=== PATIENT | male | born 1980 | race Hispanic/Latino ===

== ENCOUNTER 2023-04-10 07:15 | Emergency (ER) | payer BC, OTHER ==
[~2023-04-10] VITALS: Ht 180.3 cm; Wt 108.0 kg
[2023-04-10 07:21] VITALS: BP 150/102; PULSE 73; RESP 18
[2023-04-10 08:16] LABS: BASOPHILS # (AUTO) 0.05 K/uL (0.00-0.20); BASOPHILS % (AUTO) 0.6 % (0.0-5.0); EOSINOPHILS # (AUTO) 0.45 K/uL (0.00-0.70); EOSINOPHILS % (AUTO) 5.5 % (0.0-8.0); HEMATOCRIT 44.3 % (42-54); IMMATURE GRANULOCYTE ABSOLUTE 0.03 K/uL (0-1); LYMPHOCYTES # (AUTO) 2.2 K/uL (1.0-4.8); LYMPHOCYTES % (AUTO) 26.6 % (21.0-51.0); MEAN CORPUSCULAR HEMOGLOBIN 29.1 pg (27.0-33.0); MEAN CORPUSCULAR HGB CONC 35.4 g/dL (32.0-36.0); MONOCYTES # (AUTO) 0.5 K/uL (0.1-1.0); MONOCYTES % (AUTO) 6.2 % (3.0-13.0); NEUTROPHILS % (AUTO) 60.7 % (40.0-77.0); PLATELET COUNT (AUTO) 210 K/uL (130-400); RED CELL DISTRIBUTION WIDTH 12.3 % (11.0-15.5); WHITE BLOOD COUNT (AUTO) 8.2 K/uL (4.8-10.8)
[2023-04-10 08:29] LABS: APPEARANCE,URINE CLOUDY (CLEAR); BILIRUBIN,URINE NEGATIVE (NEGATIVE); COLOR,URINE LIGHT-ORANGE (YELLOW); GLUCOSE, URINE (UA) NEGATIVE (NEGATIVE); KETONES,URINE NEGATIVE (NEGATIVE); LEUKOCYTE ESTERASE ,URINE NEGATIVE Leu/uL (NEGATIVE); NITRATE,URINE NEGATIVE (NEGATIVE); OCCULT BLOOD,URINE LARGE (NEGATIVE); PROTEIN,URINE 30 mg/dL (NEGATIVE); UROBILINOGEN,URINE 0.2 mg/dL (0.2-1.0)
[2023-04-10 08:31] LABS: ADD UA MICROSCOPIC YES
[2023-04-10 08:36] LABS: BACTERIA,URINE RARE /HPF (None Seen); BILIRUBIN,TOTAL 0.5 mg/dL (0.2-1.0); CREATININE 1.4 mg/dL (0.5-1.5); MUCUS,URINE RARE LPF (None Seen); POTASSIUM 3.9 mmol/L (3.5-5.1); RBC,URINE TNTC /HPF (0-1); TOTAL PROTEIN, SERUM 7.2 g/dL (6.0-8.3)
== END 2023-04-10 11:08 | disposition home or self-care (01) ==
LOC: EDH 07:15
DX: N28.89 Other specified disorders of kidney and ureter (principal); N13.2 Hydronephrosis with renal and ureteral calculous obstruction
CPT/HCPCS: 36415; 74176; 80053; 81001; 82550; 85025; 87088